=== PATIENT | female | born 1950 | race Caucasian/White ===

== ENCOUNTER 2017-07-27 10:56 | Emergency (ER) | payer MEDICARE, BC ==
--- NOTE | 2017-07-27 11:26 | Emergency Department Record ---
History of Present Illness - General Chief Complaint: Headache Migraine Stated Complaint: JACKSON Time Seen by Provider: 07/27/17 11:18 Mode of Arrival: Ambulatory - History of Present Illness Initial Comments: Left headache pain started yesterday sharp feeling lasting 10 minutes and another episode today and she says it is mild to moderate pain and offerred her pain meds and she wanted to wait. Patient has had two leg blood clots and on xarelto for life. Complaint: Headache Onset/Timin -: Days(s) Onset Description: Sudden, Now resolved Location: Left, Temporal Severity: Moderate Severity scale (1-10): 8 Quality: Aching, Sharp Consistency: Intermittent, Now resolved Improves With: Nothing Worsens With: None Context: Close contacts with similar symptoms Associated Symptoms: Nausea Other Symptoms: Diaphoresis - Symptoms of Stroke Onset of Symptoms Date: 07/26/17 Onset of Symptoms Time: 09:00 - Related Data Home Medications Medication Instructions Recorded Confirmed Last Taken Cholecalciferol (Vitamin D3) 2,000 unit PO DAILY 07/27/17 07/27/17 1 Day Ago [Vitamin D3] ~07/26/17 Previous Rx's Medication Instructions Recorded Famciclovir 500 mg PO TID #21 tablet 07/27/17 Tramadol HCl [Ultram] 50 mg PO Q8H #10 tab 07/27/17 Allergies Allergy/AdvReac Type Severity Reaction Status Date / Time ELISHA Inhibitors Allergy Unknown PT UNSURE Verified 07/27/17 11:15 OF REACTION Beta-Blockers Allergy Unknown PT UNSURE Verified 07/27/17 11:15 (Beta-Adrenergic Bloc OF REACTION captopril Allergy Unknown PT UNSURE Verified 07/27/17 11:15 OF REACTION Carbapenems Allergy Unknown PT UNSURE Verified 07/27/17 11:15 OF REACTION cefaclor Allergy Unknown PT UNSURE Verified 07/27/17 11:15 OF REACTION Cephalosporins Allergy Unknown PT UNSURE Verified 07/27/17 11:15 OF REACTION clonidine Allergy Unknown PT UNSURE Verified 07/27/17 11:15 OF REACTION enalaprilat Allergy Unknown PT UNSURE Verified 07/27/17 11:15 OF REACTION erythromycin base Allergy Unknown PT UNSURE Verified 07/27/17 11:15 OF REACTION escitalopram Allergy Unknown PT UNSURE Verified 07/27/17 11:15 OF REACTION loratadine Allergy Unknown PT UNSURE Verified 07/27/17 11:15 OF REACTION Macrolide Antibiotics Allergy Unknown PT UNSURE Verified 07/27/17 11:15 OF REACTION metformin [METFORMIN] Allergy Unknown PT UNSURE Verified 07/27/17 11:15 OF REACTION nadolol Allergy Unknown PT UNSURE Verified 07/27/17 11:15 OF REACTION Penicillins Allergy Unknown PT UNSURE Verified 07/27/17 11:15 OF REACTION Sulfa (Sulfonamide Allergy Unknown PT UNSURE Verified 07/27/17 11:15 Antibiotics) OF REACTION sulfacetamide Allergy Unknown PT UNSURE Verified 07/27/17 11:15 OF REACTION topiramate Allergy Unknown PT UNSURE Verified 07/27/17 11:15 OF REACTION Travel Screening - Travel/Exposure Within Last 30 Days Have you traveled within the last 30 days?: No - Travel/Exposure Within Last Year Have you traveled outside the [place] in the last year?: No - Additonal Travel Details Have you been exposed to anyone with a communicable illness?: No - Travel Symptoms Symptom Screening: None Review of Systems Reviewed: No additional complaints except as noted below Constitutional: Reports: As per HPI. Denies: Chills, Fever, Malaise, Night sweats, Weakness, Weight change Eyes: Reports: As per HPI. Denies: Eye discharge, Eye pain, Photophobia, Vision change ENT: Reports: As per HPI. Denies: Congestion, Dental pain, Ear pain, Epistaxis , Hearing loss, Throat pain Respiratory: Reports: As per HPI. Denies: Cough, Dyspnea, Hemoptysis, Stridor, Wheezes Cardiovascular: Reports: As per HPI. Denies: Arrhythmia, Chest pain, Dyspnea on exertion, Edema, Murmurs, Orthopnea, Palpitations, Paroxysmal nocturnal dyspnea, Rheumatic Fever, Syncope Endocrine: Reports: As per HPI. Denies: Fatigue, Heat or cold intolerance, Polydipsia, Polyuria Gastrointestinal: Reports: As per HPI, Nausea. Denies: Abdominal pain, Constipation, Diarrhea, Hematemesis, Hematochezia, Melena, Vomiting Genitourinary: Reports: As per HPI. Denies: Abnormal menses, Discharge, Dyspareunia, Dysuria, Frequency, Hematuria, Incontinence, Retention, Urgency Musculoskeletal: Reports: As per HPI. Denies: Arthralgia, Back pain, Gout, Joint swelling, Myalgia, Neck pain Skin: Reports: As per HPI. Denies: Bruising, Change in color, Change in hair/ nails, Lesions, Pruritus, Rash Neurological: Reports: As per HPI, Headache. Denies: Abnormal gait, Confusion, Numbness, Paresthesias, Seizure, Tingling, Tremors, Vertigo, Weakness Psychiatric: Reports: As per HPI. Denies: Anxiety, Auditory hallucinations, Depression, Homicidal thoughts, Suicidal thoughts, Visual hallucinations Hematological/Lymphatic: Reports: As per HPI. Denies: Anemia, Blood Clots, Easy bleeding, Easy bruising, Swollen glands Past Medical History - SOCIAL HISTORY Smoking Status: Former smoker Alcohol Use: None Drug Use: None - RESPIRATORY Hx Respiratory Disorders: Yes Hx Pneumonia: Yes - CARDIOVASCULAR Hx Cardio Disorders: Yes Hx Deep Vein Thrombosis: Yes Hx Hypertension: Yes - NEURO Hx Neuro Disorders: No - GI Hx GI Disorders: No - Hx Genitourinary Disorders: No - ENDOCRINE Hx Endocrine Disorders: Yes Hx Diabetes: Yes (Type 2) - MUSCULOSKELETAL Hx Musculoskeletal Disorders: Yes Hx Arthritis: Yes - PSYCH Hx Psych Problems: No - HEMATOLOGY/ONCOLOGY Hx Hematology/Oncology Disorders: No Family Medical History Any Significant Family History?: Yes Hx Heart Disease: Father, Mother Physical Exam - General General Appearance: Alert, Oriented x3, Cooperative, No acute distress - Head Head exam: Normal inspection - Eye Eye exam: Normal appearance, PERRL Pupils: Normal accommodation - ENT ENT exam: Normal exam, Mucous membranes moist, Normal external ear exam, Normal orophraynx, TM's normal bilaterally Ear exam: Normal external inspection. negative: External canal tenderness Nasal Exam: Normal inspection. negative: Discharge, Sinus tenderness Mouth exam: Normal external inspection, Tongue normal Teeth exam: Normal inspection. negative: Dental caries Throat exam: Normal inspection. negative: Tonsillar erythema, Tonsillar exudate - Neck Neck exam: Normal inspection, Full ROM. negative: Tenderness - Respiratory Respiratory exam: Normal lung sounds bilaterally. negative: Respiratory distress - Cardiovascular Cardiovascular Exam: Regular rate, Normal rhythm, Normal heart sounds - GI/Abdominal GI/Abdominal exam: Soft, Normal bowel sounds. negative: Tenderness - Rectal Rectal exam: Deferred - exam: Deferred - Extremities Extremities exam: Normal inspection, Full ROM, Normal capillary refill. negative: Tenderness - Back Back exam: Reports: Normal inspection, Full ROM. Denies: Muscle spasm, Rash noted, Tenderness - Neurological Neurological exam: Alert, Normal gait, Oriented X3, Reflexes normal - Psychiatric Psychiatric exam: Normal affect, Normal mood - Skin Skin exam: Dry, Intact, Normal color, Warm Course Vital Signs 07/27/17 10:58 Temperature 98.7 F Pulse Rate 60 Respiratory 16 Rate Blood Pressure 125/86 Pulse Ox 98 Medical Decision Making - Data Complexity MDM Data: Labs Ordered and/or Reviewed, X-Ray Ordered and/or Reviewed (CT head no intracranial abnormality) - Lab Data Result diagrams: 07/27/17 11:34 07/27/17 11:34 Disposition Clinical Impression: Headache Qualifiers: Headache type: unspecified Headache chronicity pattern: acute headache Intractability: not intractable Qualified Code(s): R51 - Headache Disposition: Home, Self-Care Condition: (1) Good Instructions: Acute Headache (ED) Additional Instructions: follow up with family in 3-4 days tylenol for pain and if severe use ultram watch for rash on face and if one starts take famvir three times a day heat to the back of neck Prescriptions: Famciclovir 500 mg PO TID #21 tablet Tramadol HCl [Ultram] 50 mg PO Q8H #10 tab Forms: Patient Portal Access Time of Disposition: 13:11 Quality - Quality Measures Quality Measures: N/A - Blood Pressure Screening Does Patient Have Any of the Following: No Blood Pressure Classification: Pre-Hypertensive BP Reading Systolic Measurement: 125 Diastolic Measurement: 86 Screening for High Blood Pressure: < Pre-Hypertensive BP, F/U Documented > [ G8950] Pre-Hypertensive Follow-up Interventions: Referral to alternative/primary care provider.
[2017-07-27] MEDS ORDERED: ONDANSETRON HCL IV 4 MG/2 ML VIAL IVP ONE ×2 (11:34→12:41)
[2017-07-27 11:39] LABS: BASO % 0.5 % (0-6); EOS % 2.8 % (0-6); GRAN % 59.9 % (47-80); HEMATOCRIT 46.1 % (35.0-47.0); HEMOGLOBIN 14.9 gm/dl (11.6-16.0); LYMPH % 26.7 % (16-45); MEAN CELL VOLUME 82.2 fl (81-97); MEAN CORPUSCULAR HGB CONC 32.3 g/dl (32-36); MEAN PLATELET VOLUME 10.8 fl (7.4-10.4); MONO % 10.1 % (0-9); PLATELET COUNT 212 K/uL (130-400); RED BLOOD COUNT 5.61 M/uL (3.80-5.40); RED CELL DISTRIBUTION WIDTH 14.3 % (11.5-14.5); WHITE BLOOD COUNT W/O DIFF 7.9 K/uL (4.2-12.2)
[2017-07-27 11:40] LABS: MEAN CORPUSCULAR HEMOGLOBIN 26.5 pg (27-33)
[2017-07-27 11:48] LABS: BLOOD UREA NITROGEN 16 mg/dL (8-23); CREATININE 0.7 mg/dL (0.5-0.9); EST GLOMERULAR FILTRATION RATE > 60 mL/min
[2017-07-27 11:51] LABS: GLUCOSE,RANDOM 292 mg/dL (74-109)
[2017-07-27 11:52] LABS: INR 1.2; PARTIAL THROMBOPLASTIN TIME 32.6 SECONDS (24.5-39.1)
--- NOTE | 2017-07-27 20:40 | CT SCAN REPORT ---
EXAM: CT SCAN HEAD WO CONTRAST HISTORY: SUDDEN ONSET OF LEFT-SIDED HEADACHE TWO HOURS AGO. SIMILAR EPISODE ONE DAY AGO LASTING TEN MINUTES. TECHNIQUE: Routine noncontrast CT examination of the head is performed. COMPARISON: CT head without contrast dated 05/20/2007. FINDINGS: There is mild prominence of the subarachnoid spaces consistent with age-related atrophy. The ventricles are nonenlarged. No new suspicious area of abnormally increased or decreased attenuation is noted throughout the brain substance. No abnormal extraaxial fluid collection is seen. No asymmetric density within the middle cerebral arteries. No skull fracture. There is chronic opacification of the left sphenoid sinus, stable. The paranasal sinuses and mastoid air cells are otherwise clear. The orbits as visualized are unremarkable. IMPRESSION: 1. NO CT EVIDENCE OF AN ACUTE INTRACRANIAL ABNORMALITY. 2. CHRONIC OPACIFICATION OF THE LEFT SPHENOID SINUS. JOB NUMBER: [id number] MTDD
== END 2017-07-27 13:25 | disposition home or self-care (01) ==
LOC: ER 10:56
DX: R51 Headache (principal); R11.0 Nausea; R61 Generalized hyperhidrosis; I10 Essential (primary) hypertension; E11.9 Type 2 diabetes mellitus without complications; Z87.891 Personal history of nicotine dependence
CPT/HCPCS: 99284 ×2; 96374; 85025; 85730; 85610; 80048; 70450; J2405

== ENCOUNTER 2018-03-26 08:35 | Emergency (ER) | payer MEDICARE, BC ==
[2018-03-26] MEDS: DIAZEPAM (VALIUM) 5MG/ML **10ML VIAL IVP ONE ×2 (09:25→10:40)
[2018-03-26] MEDS: KETOROLAC 30 MG/ML VIAL IVP ONE (09:26)
[2018-03-26] MEDS: ONDANSETRON HCL IV 4 MG/2 ML VIAL IVP ONE (10:41)
--- NOTE | 2018-03-26 10:41 | Emergency Department Record ---
History of Present Illness - General Chief Complaint: Neck Injury/Pain Stated Complaint: NECK PAIN Time Seen by Provider: 03/26/18 08:58 Source: Patient Mode of Arrival: Ambulatory Limitations: No limitations - History of Present Illness Initial Comments: pts neck started hurting her yesterday and has gotten worse until she can no longer lift it or rotate it. she denies any injury. MD Complaint: Neck pain Onset/Timin -: Hour(s) Place: Home Radiation: Left shoulder Severity: Severe Severity scale (1-10): 10 Quality: Sharp Consistency: Constant, Getting worse Improves With: Immobilization, Medication OTC/prescribed, Remaining still Worsens With: Movement of extremity, Movement of neck Context: Unknown Associated Symptoms: None Treatments Prior to Arrival: Prescription pain med, Cold therapy, Heat therapy - Related Data Home Medications Medication Instructions Recorded Confirmed Last Taken Albuterol Sulfate [Proair Hfa] 2 puff INH ASDIR 03/26/18 03/26/18 Unknown Rivaroxaban [Xarelto] 10 mg PO QHS 03/26/18 03/26/18 03/26/18 Sotalol HCl [Betapace] 80 mg PO BID 03/26/18 03/26/18 03/26/18 Previous Rx's Medication Instructions Recorded Cyclobenzaprine HCl [Flexeril] 10 mg PO TID #14 tablet 03/26/18 Hydrocodone/APAP 5/325Mg [[place] 1 each PO Q6H #12 tab 03/26/18 5Mg/325Mg] Allergies Allergy/AdvReac Type Severity Reaction Status Date / Time ELISHA Inhibitors Allergy Unknown PT UNSURE Verified 03/26/18 08:40 OF REACTION Beta-Blockers Allergy Unknown PT UNSURE Verified 03/26/18 08:40 (Beta-Adrenergic Bloc OF REACTION captopril Allergy Unknown PT UNSURE Verified 03/26/18 08:40 OF REACTION Carbapenems Allergy Unknown PT UNSURE Verified 03/26/18 08:40 OF REACTION cefaclor Allergy Unknown PT UNSURE Verified 03/26/18 08:40 OF REACTION Cephalosporins Allergy Unknown PT UNSURE Verified 03/26/18 08:40 OF REACTION clonidine Allergy Unknown PT UNSURE Verified 03/26/18 08:40 OF REACTION enalaprilat Allergy Unknown PT UNSURE Verified 03/26/18 08:40 OF REACTION erythromycin base Allergy Unknown PT UNSURE Verified 03/26/18 08:40 OF REACTION escitalopram Allergy Unknown PT UNSURE Verified 03/26/18 08:40 OF REACTION loratadine Allergy Unknown PT UNSURE Verified 03/26/18 08:40 OF REACTION Macrolide Antibiotics Allergy Unknown PT UNSURE Verified 03/26/18 08:40 OF REACTION metformin [METFORMIN] Allergy Unknown PT UNSURE Verified 03/26/18 08:40 OF REACTION nadolol Allergy Unknown PT UNSURE Verified 03/26/18 08:40 OF REACTION Penicillins Allergy Unknown PT UNSURE Verified 03/26/18 08:40 OF REACTION Sulfa (Sulfonamide Allergy Unknown PT UNSURE Verified 03/26/18 08:40 Antibiotics) OF REACTION sulfacetamide Allergy Unknown PT UNSURE Verified 03/26/18 08:40 OF REACTION topiramate Allergy Unknown PT UNSURE Verified 03/26/18 08:40 OF REACTION Travel Screening - Travel/Exposure Within Last 30 Days Have you traveled within the last 30 days?: No - Travel/Exposure Within Last Year Have you traveled outside the [place] in the last year?: No - Additonal Travel Details Have you been exposed to anyone with a communicable illness?: No - Travel Symptoms Symptom Screening: None Review of Systems Reviewed: No additional complaints except as noted below Constitutional: Reports: As per HPI. Denies: Chills, Fever, Malaise, Night sweats, Weakness, Weight change Eyes: Reports: As per HPI. Denies: Eye discharge, Eye pain, Photophobia, Vision change ENT: Reports: As per HPI. Denies: Congestion, Dental pain, Ear pain, Epistaxis , Hearing loss, Throat pain Respiratory: Reports: As per HPI. Denies: Cough, Dyspnea, Hemoptysis, Stridor, Wheezes Cardiovascular: Reports: As per HPI. Denies: Arrhythmia, Chest pain, Dyspnea on exertion, Edema, Murmurs, Orthopnea, Palpitations, Paroxysmal nocturnal dyspnea, Rheumatic Fever, Syncope Endocrine: Reports: As per HPI. Denies: Fatigue, Heat or cold intolerance, Polydipsia, Polyuria Gastrointestinal: Reports: As per HPI. Denies: Abdominal pain, Constipation, Diarrhea, Hematemesis, Hematochezia, Melena, Nausea, Vomiting Genitourinary: Reports: As per HPI. Denies: Abnormal menses, Discharge, Dyspareunia, Dysuria, Frequency, Hematuria, Incontinence, Retention, Urgency Musculoskeletal: Reports: As per HPI, Neck pain. Denies: Arthralgia, Back pain , Gout, Joint swelling, Myalgia Skin: Reports: As per HPI. Denies: Bruising, Change in color, Change in hair/ nails, Lesions, Pruritus, Rash Neurological: Reports: As per HPI. Denies: Abnormal gait, Confusion, Headache, Numbness, Paresthesias, Seizure, Tingling, Tremors, Vertigo, Weakness Psychiatric: Reports: As per HPI. Denies: Anxiety, Auditory hallucinations, Depression, Homicidal thoughts, Suicidal thoughts, Visual hallucinations Hematological/Lymphatic: Reports: As per HPI. Denies: Anemia, Blood Clots, Easy bleeding, Easy bruising, Swollen glands Past Medical History - SOCIAL HISTORY Smoking Status: Former smoker Alcohol Use: None Drug Use: None - RESPIRATORY Hx Respiratory Disorders: Yes Hx Pneumonia: Yes - CARDIOVASCULAR Hx Cardio Disorders: Yes Hx Deep Vein Thrombosis: Yes Hx Hypertension: Yes - NEURO Hx Neuro Disorders: No - GI Hx GI Disorders: No - Hx Genitourinary Disorders: No - ENDOCRINE Hx Endocrine Disorders: Yes Hx Diabetes: Yes (Type 2) - MUSCULOSKELETAL Hx Musculoskeletal Disorders: Yes Hx Arthritis: Yes - PSYCH Hx Psych Problems: No - HEMATOLOGY/ONCOLOGY Hx Hematology/Oncology Disorders: No Family Medical History Any Significant Family History?: Yes Hx Heart Disease: Father, Mother Physical Exam - General General Appearance: Alert, Oriented x3, Cooperative, Mild distress - Head Head exam: Normal inspection - Eye Eye exam: Normal appearance, PERRL, EOMI Pupils: Normal accommodation - ENT ENT exam: Normal exam, Mucous membranes moist, Normal external ear exam, Normal orophraynx, TM's normal bilaterally Ear exam: Normal external inspection. negative: External canal tenderness Nasal Exam: Normal inspection. negative: Discharge, Sinus tenderness Mouth exam: Normal external inspection, Tongue normal Teeth exam: Normal inspection. negative: Dental caries Throat exam: Normal inspection. negative: Tonsillar erythema, Tonsillar exudate - Neck Neck exam: Tenderness, Other (neck hyper flexed, unable to turn, rotate). negative: Full ROM - Respiratory Respiratory exam: Normal lung sounds bilaterally. negative: Respiratory distress - Cardiovascular Cardiovascular Exam: Regular rate, Normal rhythm, Normal heart sounds - GI/Abdominal GI/Abdominal exam: Soft, Normal bowel sounds. negative: Tenderness - Rectal Rectal exam: Deferred - exam: Deferred - Extremities Extremities exam: Normal inspection, Full ROM, Normal capillary refill. negative: Tenderness - Back Back exam: Reports: Normal inspection, Full ROM. Denies: Muscle spasm, Rash noted, Tenderness - Neurological Neurological exam: Alert, CN II-XII intact, Normal gait, Oriented X3 - Psychiatric Psychiatric exam: Normal affect, Normal mood - Skin Skin exam: Dry, Intact, Normal color, Warm Course Vital Signs 03/26/18 03/26/18 08:41 10:20 Temperature 98 F Pulse Rate 90 Pulse Rate [ 75 Pulse Ox Probe] Respiratory 20 20 Rate Blood Pressure 153/105 Blood Pressure 140/94 [Left Arm] Pulse Ox 97 97 - Reevaluation(s) Reevaluation #1: 03/26/18 12:05 ct neg Disposition Disposition: Discharge Clinical Impression: Torticollis, acute Disposition: Home, Self-Care Condition: (1) Good Instructions: Spasmodic Torticollis (ED) Additional Instructions: follow up with family doctor. return sooner if worse. apply ice and moist heat Prescriptions: Cyclobenzaprine HCl [Flexeril] 10 mg PO TID #14 tablet Hydrocodone/APAP 5/325Mg [[place] 5Mg/325Mg] 1 each PO Q6H #12 tab Forms: Patient Portal Access Quality - Quality Measures Quality Measures: N/A - Blood Pressure Screening Does Patient Have Any of the Following: Active Dx of HTN Blood Pressure Classification: Hypertensive Reading Systolic Measurement: 153 Diastolic Measurement: 105 Screening for High Blood Pressure: Patient Exclusion, Hx of HTN [G9744]
[2018-03-26] MEDS: HYDROMORPHONE HCL 2 MG/ML VIAL IVP ONE ×2 (11:24→12:20)
--- NOTE | 2018-03-27 09:46 | CT ANGIOGRAM REPORT ---
EXAM: CTA OF THE NECK WITH CONTRAST HISTORY: NECK PAIN. TECHNIQUE: CTA of the neck was performed after intravenous administration of 80 ml of Omnipaque 350 contrast material. Sagittal and coronal three dimensional MIP images were performed on an independent workstation. FINDINGS: The great vessels are patent. The common carotid arteries are widely patent. The vertebral arteries are patent. No evidence of aneurysm or dissection. No hemodynamically significant stenosis by NASCET criteria. IMPRESSION: 1. UNREMARKABLE CTA OF THE NECK. NO EVIDENCE OF ANEURYSM OR DISSECTION. NO LARGE VESSEL OCCLUSIVE DISEASE BY NASCET CRITERIA. 2. NOT MENTIONED ABOVE IS COMPLETE OPACIFICATION OF THE LEFT SPHENOID SINUS. JOB [facility]BER: [id number] [facility]
== END 2018-03-26 12:28 | disposition home or self-care (01) ==
LOC: ER 08:35
DX: M43.6 Torticollis (principal); I10 Essential (primary) hypertension; E11.9 Type 2 diabetes mellitus without complications; Z87.891 Personal history of nicotine dependence
CPT/HCPCS: 99284 ×2; 96376; 96374; 96375; 70498; Q9967; J1885; J2405; J1170; J3360

== ENCOUNTER 2018-05-28 09:02 | Emergency (ER) | payer MEDICARE, BC ==
--- NOTE | 2018-05-28 09:18 | Emergency Department Record ---
History of Present Illness - General Chief complaint: Extremity Problem Stated complaint: POSSIBLE BROKEN HAND/FINGER Time Seen by Provider: 05/28/18 09:13 Source: Patient, Family () Mode of Arrival: Ambulatory - History of Present Illness Initial comments: Pt fell at home in tub with injury to left hand. Right hand dominate. No pain initially but noted swelling yesterday and removed rings. No pain to the wrist or elbow, no other injury with the fall. Pt has pain at the MCP area of the hand with swelling and decreased ROM. States fell bending to chicken picker bath mat. No dizziness or CP. No head or neck injury. Onset/Timin -: Days(s) Location: Left History of Same: Yes Radiation: None Severity scale (1-10): 8 Quality: Aching Improves with: Nothing Worsens with: Nothing - Related Data Home Medications Medication Instructions Recorded Confirmed Last Taken Lisinopril [Prinivil] 10 mg PO DAILY 05/28/18 05/28/18 1 Day Ago ~05/27/18 Previous Rx's Medication Instructions Recorded Cyclobenzaprine HCl [Flexeril] 10 mg PO TID #14 tablet 03/26/18 Hydrocodone/APAP 5/325Mg [[place] 1 each PO Q6H #12 tab 03/26/18 5Mg/325Mg] Allergies Allergy/AdvReac Type Severity Reaction Status Date / Time ELISHA Inhibitors Allergy Unknown PT UNSURE Verified 05/28/18 09:09 OF REACTION Beta-Blockers Allergy Unknown PT UNSURE Verified 05/28/18 09:09 (Beta-Adrenergic Bloc OF REACTION captopril Allergy Unknown PT UNSURE Verified 05/28/18 09:09 OF REACTION Carbapenems Allergy Unknown PT UNSURE Verified 05/28/18 09:09 OF REACTION cefaclor Allergy Unknown PT UNSURE Verified 05/28/18 09:09 OF REACTION Cephalosporins Allergy Unknown PT UNSURE Verified 05/28/18 09:09 OF REACTION clonidine Allergy Unknown PT UNSURE Verified 05/28/18 09:09 OF REACTION enalaprilat Allergy Unknown PT UNSURE Verified 05/28/18 09:09 OF REACTION erythromycin base Allergy Unknown PT UNSURE Verified 05/28/18 09:09 OF REACTION escitalopram Allergy Unknown PT UNSURE Verified 05/28/18 09:09 OF REACTION loratadine Allergy Unknown PT UNSURE Verified 05/28/18 09:09 OF REACTION Macrolide Antibiotics Allergy Unknown PT UNSURE Verified 05/28/18 09:09 OF REACTION metformin [METFORMIN] Allergy Unknown PT UNSURE Verified 05/28/18 09:09 OF REACTION nadolol Allergy Unknown PT UNSURE Verified 05/28/18 09:09 OF REACTION Penicillins Allergy Unknown PT UNSURE Verified 05/28/18 09:09 OF REACTION Sulfa (Sulfonamide Allergy Unknown PT UNSURE Verified 05/28/18 09:09 Antibiotics) OF REACTION sulfacetamide Allergy Unknown PT UNSURE Verified 05/28/18 09:09 OF REACTION topiramate Allergy Unknown PT UNSURE Verified 05/28/18 09:09 OF REACTION Travel Screening - Travel/Exposure Within Last 30 Days Have you traveled within the last 30 days?: No - Travel/Exposure Within Last Year Have you traveled outside the [place] in the last year?: No - Additonal Travel Details Have you been exposed to anyone with a communicable illness?: No - Travel Symptoms Symptom Screening: None Review of Systems Constitutional: Denies: Chills, Fever Eyes: Denies: Eye discharge, Photophobia ENT: Denies: Congestion Respiratory: Denies: Cough Cardiovascular: Denies: Arrhythmia, Chest pain, Syncope Endocrine: Denies: Fatigue Gastrointestinal: Denies: Abdominal pain, Nausea, Vomiting Musculoskeletal: Reports: As per HPI. Denies: Back pain Skin: Denies: Bruising, Rash Neurological: Denies: Confusion, Headache, Weakness Psychiatric: Denies: Anxiety Hematological/Lymphatic: Denies: Anemia Past Medical History - SOCIAL HISTORY Smoking Status: Former smoker Alcohol Use: None Drug Use: None - RESPIRATORY Hx Respiratory Disorders: Yes Hx Pneumonia: Yes - CARDIOVASCULAR Hx Cardio Disorders: Yes Hx Deep Vein Thrombosis: Yes Hx Hypertension: Yes - NEURO Hx Neuro Disorders: No - GI Hx GI Disorders: No - Hx Genitourinary Disorders: No - ENDOCRINE Hx Endocrine Disorders: Yes Hx Diabetes: Yes (Type 2) - MUSCULOSKELETAL Hx Musculoskeletal Disorders: Yes Hx Arthritis: Yes - PSYCH Hx Psych Problems: No - HEMATOLOGY/ONCOLOGY Hx Hematology/Oncology Disorders: No Family Medical History Any Significant Family History?: Yes Hx Heart Disease: Father, Mother Physical Exam - General General Appearance: Alert, Oriented x3, Cooperative, No acute distress - Head Head exam: Normal inspection - Eye Eye exam: Normal appearance, PERRL - ENT ENT exam: Normal exam, Mucous membranes moist, Normal external ear exam, Normal orophraynx - Neck Neck exam: Normal inspection, Full ROM. negative: Tenderness - Respiratory Respiratory exam: Normal lung sounds bilaterally. negative: Respiratory distress - Cardiovascular Cardiovascular Exam: Regular rate, Normal rhythm, Normal heart sounds Peripheral Pulses: 2+: Radial (R), Radial (L) - GI/Abdominal GI/Abdominal exam: Soft, Normal bowel sounds. negative: Tenderness - Extremities Extremities exam: Tenderness Image of Hand: 1 - swelling and tenderness without ecchymosis. decreased ROM due to swelling and pain. No pain to wrist or thumb. - Back Back exam: Reports: Normal inspection. Denies: Paraspinal tenderness - Neurological Neurological exam: Alert, Normal gait, Oriented X3 - Psychiatric Psychiatric exam: Normal affect, Normal mood - Skin Skin exam: Normal color. negative: Rash Course - Reevaluation(s) Reevaluation #1: 05/28/18 09:38 XRay are neg for fracture. Swelling is most likly related to hematoma and anticoag use. We will splint for comfort, ice, and elevate with close follow up with family doctor. Reevaluation #2: 05/28/18 09:43 Splint applied by nursing. Good position and circulation after applied. Medical Decision Making - Data Complexity MDM Data: X-Ray Ordered and/or Reviewed - Radiology Data Radiology results: Image reviewed -: Radiology Exam Interpreted by Myself Disposition Disposition: Discharge Clinical Impression: Contusion of hand, left, Anticoagulant long-term use Disposition: Home, Self-Care Condition: (2) Stable Instructions: Splint Care (ED), RICE Therapy (ED) Additional Instructions: Tylenol for pain. ELEVATE Forms: Patient Portal Access Time of Disposition: 09:43 Quality - Quality Measures Quality Measures: N/A - Blood Pressure Screening Does Patient Have Any of the Following: No Blood Pressure Classification: Hypertensive Reading Systolic Measurement: 165 Diastolic Measurement: 109 Screening for High Blood Pressure: Patient Exclusion, Hx of HTN [G9744]
--- NOTE | 2018-05-29 10:07 | RADIOLOGY REPORT ---
EXAM: LEFT HAND HISTORY: PAIN. TECHNIQUE: Three views of the left hand were performed. FINDINGS: No evidence of acute fracture or dislocation. Mild degenerative change of the first carpal metacarpal joint space. IMPRESSION: NEGATIVE FOR ACUTE PROCESS. JOB NUMBER: [id number] MTDD
== END 2018-05-28 09:58 | disposition home or self-care (01) ==
LOC: ER 09:02
DX: S60.222A Contusion of left hand, initial encounter (principal); W18.2XXA Fall in (into) shower or empty bathtub, initial encounter; E11.9 Type 2 diabetes mellitus without complications; I10 Essential (primary) hypertension; Z79.01 Long term (current) use of anticoagulants; Z87.891 Personal history of nicotine dependence
CPT/HCPCS: 99283

== ENCOUNTER 2018-12-29 12:59 | Emergency (ER) | payer MEDICARE, BC ==
[2018-12-29 14:48] LABS: ABSOLUTE NEUTROPHIL COUNT 5.44; BASO % 0.5 % (0-6); GRAN % 62.5 % (47-80); HEMATOCRIT 47.5 % (35.0-47.0); HEMOGLOBIN 14.7 gm/dl (11.6-16.0); LYMPH % 24.7 % (16-45); MEAN CELL VOLUME 84.5 fl (81-97); MEAN CORPUSCULAR HEMOGLOBIN 26.1 pg (27-33); MEAN CORPUSCULAR HGB CONC 30.9 g/dl (32-36); MEAN PLATELET VOLUME 10.9 fl (7.4-10.4); MONO % 9.3 % (0-9); PLATELET COUNT 210 K/uL (130-400); RED BLOOD COUNT 5.62 M/uL (3.80-5.40); WHITE BLOOD COUNT W/O DIFF 8.7 K/uL (4.2-12.2)
[2018-12-29 15:01] LABS: BLOOD UREA NITROGEN 19 mg/dL (8-23); CREATININE 0.8 mg/dL (0.5-0.9); EST GLOMERULAR FILTRATION RATE > 60 mL/min
[2018-12-29 15:04] LABS: GLUCOSE,RANDOM 301 mg/dL (74-109)
[2018-12-29] MEDS ORDERED: CLINDAMYCIN 600MG/50ML PREMIX 600 MG/50 ML BAG IVPB ONE (15:19)
--- NOTE | 2018-12-29 16:24 | Emergency Department Record ---
History of Present Illness - General Chief complaint: Lower Extremity Pain Stated complaint: RT FOOT SWELLING/PAIN Time Seen by Provider: 12/29/18 14:15 Source: Patient Mode of Arrival: Ambulatory Limitations: No limitations - History of Present Illness Initial comments: pt scraped her foot a week ago on a step and now has redness around the sight with increased swelling and tenderness Complaint: Extremity pain, Extremity swelling Onset/Timin -: Week(s) Location: Right, Foot History of Same: No Radiation: Proximal, Distal Severity scale (1-10): 3 Quality: Aching Consistency: Constant Improves with: Nothing Worsens with: Nothing Associated Symptoms: Denies other symptoms - Related Data Home Medications Medication Instructions Recorded Confirmed Last Taken Calcium Carbonate/Vitamin D3 1 each PO BID 12/29/18 12/29/18 Unknown [Calcium 500+D Tablet Chew] Insulin Glargine,Hum.rec.anlog 60 unit SQ QHS 12/29/18 12/29/18 Unknown [Lantus] Multivitamin [Multi-Vitamin Daily] 2 each PO QAM 12/29/18 12/29/18 Unknown [place]-3/Dha/Epa/Fish Oil [Fish Oil 2 each PO QAM 12/29/18 12/29/18 Unknown 1,200 mg Softgel] Omeprazole [Prilosec] 40 mg PO DAILY 12/29/18 12/29/18 Unknown Rosuvastatin Calcium 20 mg PO QAM 12/29/18 12/29/18 Unknown Previous Rx's Medication Instructions Recorded Clindamycin HCl 150 mg PO Q8HR #30 capsule 12/29/18 Clindamycin HCl [Cleocin HCl] 300 mg PO Q8HR #30 capsule 12/29/18 Allergies Allergy/AdvReac Type Severity Reaction Status Date / Time nitrofurantoin Allergy Intermediate RASH Verified 12/29/18 15:29 [From Macrobid] nitrofurantoin Allergy Intermediate RASH Verified 12/29/18 15:29 macrocrystalline [From Macrobid] ELISHA Inhibitors Allergy Unknown PT UNSURE Verified 12/29/18 15:29 OF REACTION Beta-Blockers Allergy Unknown PT UNSURE Verified 12/29/18 15:29 (Beta-Adrenergic Bloc OF REACTION captopril Allergy Unknown PT UNSURE Verified 12/29/18 15:29 OF REACTION Carbapenems Allergy Unknown PT UNSURE Verified 12/29/18 15:29 OF REACTION cefaclor Allergy Unknown PT UNSURE Verified 12/29/18 15:29 OF REACTION Cephalosporins Allergy Unknown PT UNSURE Verified 12/29/18 15:29 OF REACTION clonidine Allergy Unknown PT UNSURE Verified 12/29/18 15:29 OF REACTION enalaprilat Allergy Unknown PT UNSURE Verified 12/29/18 15:29 OF REACTION erythromycin base Allergy Unknown PT UNSURE Verified 12/29/18 15:29 OF REACTION escitalopram Allergy Unknown PT UNSURE Verified 12/29/18 15:29 OF REACTION loratadine Allergy Unknown PT UNSURE Verified 12/29/18 15:29 OF REACTION Macrolide Antibiotics Allergy Unknown PT UNSURE Verified 12/29/18 15:29 OF REACTION metformin [METFORMIN] Allergy Unknown PT UNSURE Verified 12/29/18 15:29 OF REACTION nadolol Allergy Unknown PT UNSURE Verified 12/29/18 15:29 OF REACTION Penicillins Allergy Unknown PT UNSURE Verified 12/29/18 15:29 OF REACTION Sulfa (Sulfonamide Allergy Unknown PT UNSURE Verified 12/29/18 15:29 Antibiotics) OF REACTION sulfacetamide Allergy Unknown PT UNSURE Verified 12/29/18 15:29 OF REACTION topiramate Allergy Unknown PT UNSURE Verified 12/29/18 15:29 OF REACTION Travel Screening - Travel/Exposure Within Last 30 Days Have you traveled within the last 30 days?: No Review of Systems Reviewed: No additional complaints except as noted below Constitutional: Reports: As per HPI. Denies: Chills, Fever, Malaise, Night sweats, Weakness, Weight change Eyes: Reports: As per HPI. Denies: Eye discharge, Eye pain, Photophobia, Vision change ENT: Reports: As per HPI. Denies: Congestion, Dental pain, Ear pain, Epistaxis, Hearing loss, Throat pain Respiratory: Reports: As per HPI. Denies: Cough, Dyspnea, Hemoptysis, Stridor, Wheezes Cardiovascular: Reports: As per HPI. Denies: Arrhythmia, Chest pain, Dyspnea on exertion, Edema, Murmurs, Orthopnea, Palpitations, Paroxysmal nocturnal dyspnea, Rheumatic Fever, Syncope Endocrine: Reports: As per HPI. Denies: Fatigue, Heat or cold intolerance, Polydipsia, Polyuria Gastrointestinal: Reports: As per HPI. Denies: Abdominal pain, Constipation, Diarrhea, Hematemesis, Hematochezia, Melena, Nausea, Vomiting Genitourinary: Reports: As per HPI. Denies: Abnormal menses, Discharge, Dyspareunia, Dysuria, Frequency, Hematuria, Incontinence, Retention, Urgency Musculoskeletal: Reports: As per HPI. Denies: Arthralgia, Back pain, Gout, Joint swelling, Myalgia, Neck pain Skin: Reports: As per HPI. Denies: Bruising, Change in color, Change in hair/nails, Lesions, Pruritus, Rash Neurological: Reports: As per HPI. Denies: Abnormal gait, Confusion, Headache, Numbness, Paresthesias, Seizure, Tingling, Tremors, Vertigo, Weakness Psychiatric: Reports: As per HPI. Denies: Anxiety, Auditory hallucinations, Depression, Homicidal thoughts, Suicidal thoughts, Visual hallucinations Hematological/Lymphatic: Reports: As per HPI. Denies: Anemia, Blood Clots, Easy bleeding, Easy bruising, Swollen glands Past Medical History - SOCIAL HISTORY Smoking Status: Former smoker Alcohol Use: None Drug Use: None - RESPIRATORY Hx Respiratory Disorders: Yes Hx Pneumonia: Yes - CARDIOVASCULAR Hx Cardio Disorders: Yes Hx Deep Vein Thrombosis: Yes Hx Hypertension: Yes - NEURO Hx Neuro Disorders: No - GI Hx GI Disorders: No - Hx Genitourinary Disorders: No - ENDOCRINE Hx Endocrine Disorders: Yes Hx Diabetes: Yes (Type 2) - MUSCULOSKELETAL Hx Musculoskeletal Disorders: Yes Hx Arthritis: Yes - PSYCH Hx Psych Problems: No - HEMATOLOGY/ONCOLOGY Hx Hematology/Oncology Disorders: No Family Medical History Any Significant Family History?: Yes Hx Heart Disease: Father, Mother Physical Exam - General General Appearance: Alert, Oriented x3, Cooperative, Mild distress - Head Head exam: Normal inspection - Eye Eye exam: Normal appearance, PERRL, EOMI Pupils: Normal accommodation - ENT ENT exam: Normal exam, Mucous membranes moist, Normal external ear exam, Normal orophraynx Ear exam: Normal external inspection. negative: External canal tenderness Nasal Exam: Normal inspection. negative: Discharge, Sinus tenderness Mouth exam: Normal external inspection, Tongue normal Teeth exam: Normal inspection. negative: Dental caries Throat exam: Normal inspection. negative: Tonsillar erythema, Tonsillar exudate - Neck Neck exam: Normal inspection, Full ROM. negative: Tenderness - Respiratory Respiratory exam: Normal lung sounds bilaterally. negative: Respiratory distress - Cardiovascular Cardiovascular Exam: Regular rate, Normal rhythm, Normal heart sounds - GI/Abdominal GI/Abdominal exam: Soft, Normal bowel sounds. negative: Tenderness - Rectal Rectal exam: Deferred - exam: Deferred - Extremities Extremities exam: Full ROM, Normal capillary refill, Tenderness Image of Feet: 1 - swelling, tender. erythema 2 - abrasion - Back Back exam: Reports: Normal inspection, Full ROM. Denies: Muscle spasm, Rash noted, Tenderness - Neurological Neurological exam: Alert, CN II-XII intact, Normal gait, Oriented X3 - Psychiatric Psychiatric exam: Normal affect, Normal mood - Skin Skin exam: Dry, Intact, Normal color, Warm Course Vital Signs 12/29/18 12/29/18 12/29/18 13:16 14:14 15:19 Temperature 98.3 F Pulse Rate 64 Pulse Rate [ 61 62 Right] Respiratory 20 18 20 Rate Blood Pressure 115/78 Blood Pressure 112/61 130/81 [Left Arm] Pulse Ox 94 L 95 94 L - Reevaluation(s) Reevaluation #1: 12/29/18 16:31 pt is going to give her self insulin at home Medical Decision Making - Lab Data Result diagrams: 12/29/18 14:40 12/29/18 14:40 Lab Results 12/29/18 12/29/18 Range/Units 14:40 14:40 WBC 8.7 (4.2-12.2) K/uL RBC 5.62 H (3.80-5.40) M/uL Hgb 14.7 (11.6-16.0) gm/dl Hct 47.5 H (35.0-47.0) % MCV 84.5 (81-97) fl MCH 26.1 L (27-33) pg MCHC 30.9 L (32-36) g/dl RDW 15.0 H (11.5-14.5) % Plt Count 210 (130-400) K/uL MPV 10.9 H (7.4-10.4) fl Gran % 62.5 (47-80) % Lymphocytes % 24.7 (16-45) % Monocytes % 9.3 H (0-9) % Eosinophils % 3.0 (0-6) % Basophils % 0.5 (0-6) % Absolute Neutrophils 5.44 Sodium 142 (136-145) mmol/L Potassium 4.5 (3.4-4.5) mmol/L Chloride 104 (98-107) mmol/L Carbon Dioxide 26.0 (22-29) mmol/L Anion Gap 12.0 (7-16) BUN 19 (8-23) mg/dL Creatinine 0.8 (0.5-0.9) mg/dL Estimated GFR > 60 mL/min Random Glucose 301 H (74-109) mg/dL Calcium 9.6 (8.8-10.2) mg/dL Disposition Disposition: Discharge Clinical Impression: Cellulitis of foot Disposition: Home, Self-Care Condition: (1) Good Instructions: Cellulitis (ED) Additional Instructions: elevate foot. warm soaks. recheck tomorrow if worse. return sooner if worse Prescriptions: Clindamycin HCl [Cleocin HCl] 300 mg PO Q8HR #30 capsule Clindamycin HCl 150 mg PO Q8HR #30 capsule Quality - Quality Measures Quality Measures: N/A - Blood Pressure Screening Does Patient Have Any of the Following: No Blood Pressure Classification: Normal BP Reading Systolic Measurement: 115 Diastolic Measurement: 78 Screening for High Blood Pressure: < Normal BP, F/U Not Required > [G8783]
--- NOTE | 2018-12-30 12:26 | RADIOLOGY REPORT ---
EXAM: RIGHT FOOT, THREE VIEWS HISTORY: FELL ON BASEMENT STAIRS ONE WEEK PRIOR. PAIN AND ERYTHEMA. SWELLING. OPEN WOUNDS TO MID LATERAL FOOT. TECHNIQUE: Three views of the right foot were obtained. Comparison: None. FINDINGS: The bones are osteopenic. No clearly acute osseous abnormality. There are scattered degenerative changes including the first MTP as well as multiple IP joints. Moderate degenerative changes to the talonavicular joint and subtalar joints. There is moderate scattered soft tissue swelling. No radiopaque foreign body. IMPRESSION: 1. NO CLEARLY ACUTE OSSEOUS ABNORMALITY. THERE ARE MODERATE TO SEVERE DEGENERATIVE CHANGES INVOLVING THE SUBTALAR JOINT AND LESS SO INVOLVING THE TALONAVICULAR JOINT AND FIRST MTP JOINTS. PLEASE NOTE IF PERSISTENT CONCERN FOR OCCULT FRACTURE, CT WOULD BE A MORE SENSITIVE TEST. 2. MODERATE SCATTERED SOFT TISSUE SWELLING. HISTORY REPORTS OPEN WOUND MID LATERAL RIGHT FOOT. NO RADIOPAQUE FOREIGN BODY. J[facility]BER: [id number] [facility]
== END 2018-12-29 16:37 | disposition home or self-care (01) ==
LOC: ER 12:59
DX: L03.115 Cellulitis of right lower limb (principal); E11.9 Type 2 diabetes mellitus without complications; Z79.84 Long term (current) use of oral hypoglycemic drugs; I10 Essential (primary) hypertension
CPT/HCPCS: 80048; 85025; 96365; 99284